=== PATIENT | male | born 1980 | race Caucasian/White ===

== ENCOUNTER 2020-09-28 22:34 | Emergency (ER) | payer SELFPAY ==
[~2020-09-28] VITALS: Ht 175.3 cm; Wt 81.0 kg
[2020-09-28] MEDS ORDERED: IBUPROFEN600 MG PO (22:53)
[2020-09-28 23:01] VITALS: BP 130/64
== END 2020-09-28 23:08 | disposition home or self-care (01) | DRG 563 ==
LOC: ED 22:34
DX: S39.011A Strain of muscle, fascia and tendon of abdomen, initial encounter (principal); M25.551 Pain in right hip; G89.29 Other chronic pain; X50.3XXA Overexertion from repetitive movements, initial encounter; Y93.89 Activity, other specified; Y92.239 Unspecified place in hospital as the place of occurrence of the external cause; Y99.0 Civilian activity done for income or pay